=== PATIENT | male | born 1985 | race Caucasian/White ===

== ENCOUNTER 2018-08-22 10:00 | Emergency (ER) | payer OTHER ==
[~2018-08-22] VITALS: Ht 182.8 cm; Wt 99.8 kg
[2018-08-22] MEDS ORDERED: NORCO 5-325 TA1 EACH PO (11:57)
== END 2018-08-22 12:05 | disposition home or self-care (01) ==
LOC: ED 10:00
DX: S22.41XA Multiple fractures of ribs, right side, initial encounter for closed fracture (principal); W01.198A Fall on same level from slipping, tripping and stumbling with subsequent striking against other object, initial encounter; Y93.89 Activity, other specified; Y92.091 Bathroom in other non-institutional residence as the place of occurrence of the external cause; Y99.8 Other external cause status